=== PATIENT | male | born 1980 | race Two or more races ===

== ENCOUNTER 2019-08-21 08:38 | Emergency (ER) | payer SELFPAY ==
[~2019-08-21] VITALS: Ht 175.3 cm; Wt 72.6 kg
[2019-08-21] MEDS ORDERED: TETRACAINE HCL 0.5% OPHT DROP 2 ML BOTTLE ONE (08:50)
[2019-08-21] MEDS ORDERED: FLUORESCEIN SODIUM 1 MG STRIP ONE (08:50)
[2019-08-21] MEDS ORDERED: TETRACAINE HCL 0.5% OPHT DROP 2 ML BOTTLE OP ONE (09:00)
[2019-08-21] MEDS ORDERED: FLUORESCEIN SODIUM 1 MG STRIP OP ONE (09:00)
[2019-08-21] MEDS ORDERED: GENTAMICIN SULFATE OPHT DROP 5 ML BOTTLE ONE (09:05)
--- NOTE | 2019-08-21 09:08 | NUR ---
eye patch placed anastasia md order. pt to ct.
[2019-08-21] MEDS ORDERED: GENTAMICIN SULFATE OPHT OINT 3.5 GM TUBE LEFTEYE ONE (09:15)
--- NOTE | 2019-08-21 09:43 | NUR ---
Patient discharged to home in stable condition. Written and verbal after care instructions given. Patient verbalizes understanding of instructions. Stressed follow up or return to ER for worsening s/s. pt was instructed to follow up with [facility] [place].
== END 2019-08-21 09:50 | disposition home or self-care (01) ==
LOC: ER 08:38
DX: T26.12XA Burn of cornea and conjunctival sac, left eye, initial encounter (principal); T20.16XA Burn of first degree of forehead and cheek, initial encounter; T26.02XA Burn of left eyelid and periocular area, initial encounter; X19.XXXA Contact with other heat and hot substances, initial encounter; Y93.89 Activity, other specified; Y92.030 Kitchen in apartment as the place of occurrence of the external cause; S02.32XA Fracture of orbital floor, left side, initial encounter for closed fracture; W22.8XXA Striking against or struck by other objects, initial encounter
CPT/HCPCS: 70480; A4663

== ENCOUNTER 2020-08-08 08:43 | Inpatient (IN) | payer MEDICAID ==
[~2020-08-08] VITALS: Ht 175.3 cm; Wt 81.6 kg
--- NOTE | 2020-08-08 08:59 | NUR ---
[email or web address], medical screening exam in progress
[2020-08-08] MEDS ORDERED: CEFTRIAXONE 1 G in IV DEXTROSE 5% 50 ML IV ONE (09:15)
[2020-08-08] MEDS ORDERED: IV NORMAL SALINE 1000 ML BAG IV ONE (09:15)
[2020-08-08] MEDS ORDERED: VANCOMYCIN IV 1,000 MG in IV DEXTROSE 5% 250 ML IV ONE (09:15)
[2020-08-08] MEDS ORDERED: VANCOMYCIN IV 200 ML ONE (09:23)
[2020-08-08] MEDS ORDERED: CEFTRIAXONE 1 G VIAL ONE (09:23)
[2020-08-08 09:53] LABS: CREATININE 1.1 mg/dL (0.6-1.3); POTASSIUM 3.7 mmol/L (3.5-5.1)
[2020-08-08 09:54] LABS: BASOPHILS # (AUTO) 0.1 K/uL (0.0-8.0); BASOPHILS % (AUTO) 0.4 % (0.0-2.0); EOSINOPHILS # (AUTO) 0.2 K/uL (0.0-0.7); EOSINOPHILS % (AUTO) 0.9 % (0.0-7.0); HEMATOCRIT 41.5 % (36.7-47.1); HEMOGLOBIN 13.5 g/dL (12.5-16.3); LYMPHOCYTES # (AUTO) 3.4 K/uL (20.0-40.0); LYMPHOCYTES % (AUTO) 18.7 % (20.5-51.5); MEAN CORPUSCULAR HEMOGLOBIN 27.8 uug (23.8-33.4); MEAN CORPUSCULAR HGB CONC 33 g/dL (32.5-36.3); MEAN CORPUSCULAR VOLUME 85.3 fL (73.0-96.2); MONOCYTES # (AUTO) 1.1 K/uL (2.0-10.0); MONOCYTES % (AUTO) 5.8 % (0.0-11.0); NEUTROPHILS # (AUTO) 13.7 K/uL (1.8-8.9); NEUTROPHILS % (AUTO) 74.2 % (38.5-71.5); PLATELET COUNT (AUTO) 396 K/uL (152-348); RED BLOOD CELL COUNT(AUTO) 4.87 MIL/uL (4.06-5.63); WHITE BLOOD COUNT (AUTO) 18.4 K/uL (3.6-10.2)
[2020-08-08 10:05] LABS: BILIRUBIN,DIRECT 0.1 mg/dL (0.0-0.2); BILIRUBIN,TOTAL 0.2 mg/dL (0.2-1.0); TOTAL PROTEIN, SERUM 7.3 g/dL (6.4-8.2)
[2020-08-08] MEDS ORDERED: ONDANSETRON 4 MG/2 ML VIAL IV PRN (10:45)
[2020-08-08] MEDS ORDERED: MAGNESIUM HYDROXIDE 30 ML LIQUID UDC PO PRN (10:45)
[2020-08-08] MEDS ORDERED: ACETAMINOPHEN 325 MG TABLET PO PRN (10:45)
[2020-08-08] MEDS ORDERED: Z GUARD REMEDY PASTE 57 GM TUBE TOP PRN (10:45)
[2020-08-08] MEDS ORDERED: HYDROCODONE/APAP 5-325MG TABLET PO PRN (10:45)
--- NOTE | 2020-08-08 10:51 | NUR ---
Patient admitted to [facility] medical-surgical floor under care of JUAN[facility]. Belongings list completed. MRSA swab collected.
--- NOTE | 2020-08-08 11:30 | NUR ---
Patient admitted from ER. patient wound pictures taken and placed in chart. Patient able to ambulate to bathroom with mild pain during ambulation. IV fluids started. Call light in reach, bed in low position, side rails up x2. Patients wounds were debrided by Podiatry and wrapped with kerlix.
[2020-08-08 11:57] VITALS: BP 108/67
--- NOTE | 2020-08-08 12:04 | NUR ---
WOUND CARE CONSULT: PT PRESENTS WITH REDNESS AND SWELLING TO BILATERAL LOWER LEGS WITH AREAS OF BROWN/YELLOW TISSUE, PRESENT ON ADMISSION. RECOMMEND DPM CONSULT. DR TONY NOTIFIED OF CONSULT REQUEST. PT STATES IS AMBULATORY. IN AGREEMENT WITH PLAN OF CARE. Addendum: 08/08/20 at 1205 by ARTHUR ZARAGOZA RN Amended: Links added.
[2020-08-08] MEDS: IV NS 1000 ML 1,000 ML IV PRN (13:14)
[2020-08-08] MEDS: HYDROMORPHONE 1 MG/1 ML DISP.SYRIN IV PRN (14:54)
[2020-08-08 15:31] VITALS: BP 112/57
[2020-08-08 20:15] VITALS: BP 109/73
[2020-08-08] MEDS: VANCOMYCIN IV 1,250 MG in IV DEXTROSE 5% 250 ML IV SCH (21:08)
--- NOTE | 2020-08-08 21:18 | NUR ---
Received pt resting in bed. AAO x4. No acute distress noted. C/o moderate pain on bilateral legs, PRN [place] given. IV site on right hand #20, IVF running at 75cc. Due Vanco given as ordered. Safety measures maintained. Call light and personal items within reach. Will continue to monitor.
[2020-08-09] MEDS: HYDROMORPHONE 1 MG/1 ML DISP.SYRIN IV PRN ×3 (03:01→20:54)
[2020-08-09 04:45] VITALS: BP 112/67
[2020-08-09 06:37] LABS: BASOPHILS # (AUTO) 0.1 K/uL (0.0-8.0); BASOPHILS % (AUTO) 0.4 % (0.0-2.0); EOSINOPHILS # (AUTO) 0.1 K/uL (0.0-0.7); EOSINOPHILS % (AUTO) 0.5 % (0.0-7.0); HEMATOCRIT 42.3 % (36.7-47.1); HEMOGLOBIN 14.1 g/dL (12.5-16.3); LYMPHOCYTES # (AUTO) 2.6 K/uL (20.0-40.0); LYMPHOCYTES % (AUTO) 16.1 % (20.5-51.5); MEAN CORPUSCULAR HGB CONC 33 g/dL (32.5-36.3); MEAN CORPUSCULAR VOLUME 84.1 fL (73.0-96.2); MONOCYTES # (AUTO) 0.6 K/uL (2.0-10.0); NEUTROPHILS # (AUTO) 12.9 K/uL (1.8-8.9); PLATELET COUNT (AUTO) 426 K/uL (152-348); RED BLOOD CELL COUNT(AUTO) 5.03 MIL/uL (4.06-5.63); WHITE BLOOD COUNT (AUTO) 16.4 K/uL (3.6-10.2)
[2020-08-09 07:09] LABS: CREATININE 0.9 mg/dL (0.6-1.3); MAGNESIUM 2.2 mg/dL (1.8-2.4); PHOSPHOROUS 3.2 mg/dL (2.5-4.9); POTASSIUM 3.5 mmol/L (3.5-5.1)
[2020-08-09 08:00] VITALS: BP 116/79
[2020-08-09] MEDS: IV NS 1000 ML 1,000 ML IV PRN (09:57)
[2020-08-09] MEDS: VANCOMYCIN IV 1,250 MG in IV DEXTROSE 5% 250 ML IV SCH ×2 (09:57→21:23)
[2020-08-09] MEDS ORDERED: CEFTRIAXONE 1 G in IV DEXTROSE 5% 50 ML IV SCH (10:00)
--- NOTE | 2020-08-09 10:00 | NUR ---
Patient had an episode where he wanted his IV taken off and go down stairs to see his mother and son. Told a nurse passing by that he wanted to leave AMA and went down to [facility], security escorted patient back up stairs. Patient was given an AMA form and he asked for his prescription, and was explained that we do not give a prescription to patients that leave AMA and that his treatment is not complete. Patient said he will not leave and apologized for his behavior. New IV attempted to put in and unable. Midline ordered as he stated that he will stay.
[2020-08-09] MEDS ORDERED: LORAZEPAM 1 MG TABLET PO PRN (13:00)
[2020-08-09 17:03] VITALS: BP 112/76
[2020-08-09 20:00] VITALS: BP 108/68
--- NOTE | 2020-08-09 21:36 | NUR ---
Received pt resting in bed. AAO x4. No acute distress noted. C/o 8/10 on bilateral legs, PRN Dilaudid given. UNA midline patent and intact, running NS 75cc/hr. Pt also on Vanco, trough was less than 20. Safety measures maintained. Call light and personal items within reach. Will continue to monitor.
--- NOTE | 2020-08-10 03:00 | NUR ---
Pt had an episode of being anxious because a visitor was supposed to come past 9pm. Pt stated that he needs to sign a very important document and that his brother is flying out tomorrow and needs these documents signed. Noted pt to change his story that his brother is visiting him to a friend when asked by charge nurse. Pt agreed for 5 minute visit with presence from security. Pt 's visitor refused to show belongings and envelope that he has to give to the patient when asked by security and did not come up. Pt became agitated and requested to see visitor in the lobby, again with the presence of security and staff. Pt escorted to the lobby. Pt noted to sign some papers but it seems to be suspicious because papers and envelope appear to be old and worn out. The visitor also gave the pt a jacket, which we questioned as we stated that all belongings during and after admission has to be checked and recorded. Pt ended up giving back the jacket to the visitor. Charge nurse aware. Pt wanted to go AMA. Risks and benefits explained. This automobile service writer stated that IV midline will be taken out and no prescription will be given if he were to go AMA. Pt changed his mind and stated that he will wait for the doctor in the morning. Offered Ativan PO for his anxiety, but pt refused PO med and requesting IV Ativan. Education provided that he does not need the IV as PO will work for him at this time. Pt refused and went to sleep. Monitor closely.
[2020-08-10] MEDS: IV NS 1000 ML 1,000 ML IV PRN (03:34)
[2020-08-10 04:55] VITALS: BP 129/84
[2020-08-10 06:29] LABS: BASOPHILS # (AUTO) 0.2 K/uL (0.0-8.0); BASOPHILS % (AUTO) 1.2 % (0.0-2.0); EOSINOPHILS # (AUTO) 0.1 K/uL (0.0-0.7); EOSINOPHILS % (AUTO) 0.7 % (0.0-7.0); HEMATOCRIT 38.1 % (36.7-47.1); HEMOGLOBIN 12.8 g/dL (12.5-16.3); LYMPHOCYTES # (AUTO) 2.7 K/uL (20.0-40.0); MEAN CORPUSCULAR HEMOGLOBIN 28.4 uug (23.8-33.4); MEAN CORPUSCULAR HGB CONC 34 g/dL (32.5-36.3); MEAN CORPUSCULAR VOLUME 84.5 fL (73.0-96.2); MONOCYTES # (AUTO) 0.9 K/uL (2.0-10.0); MONOCYTES % (AUTO) 5.5 % (0.0-11.0); NEUTROPHILS # (AUTO) 12.2 K/uL (1.8-8.9); NEUTROPHILS % (AUTO) 75.6 % (38.5-71.5); PLATELET COUNT (AUTO) 329 K/uL (152-348); RED BLOOD CELL COUNT(AUTO) 4.51 MIL/uL (4.06-5.63); WHITE BLOOD COUNT (AUTO) 16.1 K/uL (3.6-10.2)
[2020-08-10 06:48] LABS: CREATININE 0.9 mg/dL (0.6-1.3); POTASSIUM 3.3 mmol/L (3.5-5.1)
[2020-08-10] MEDS ORDERED: VANCOMYCIN IV 1,000 MG in IV DEXTROSE 5% 250 ML IV SCH (08:00)
--- NOTE | 2020-08-10 09:08 | NUR ---
alert, oriented, and insists to leave at 0900 " for family issues". willing to have Vanco 1gm ivpb administered. Once it is completed , patient left. UNA midline out. left the floor just now at 0908
[2020-08-10 09:47] VITALS: BP 110/68
== END 2020-08-10 09:15 | disposition left against medical advice (07) | DRG 383 ==
LOC: ER 08:43 → MEDSURG3 11:05
PROVIDERS: ADMIT Nurse Practitioner Acute Care; ATTEND Nurse Practitioner Acute Care
PROC: 0JBP0ZZ Excision of Left Lower Leg Subcutaneous Tissue and Fascia, Open Approach (ICD-10-PCS; principal; 2020-08-08)
PROC: 0JBN0ZZ Excision of Right Lower Leg Subcutaneous Tissue and Fascia, Open Approach (ICD-10-PCS; principal; 2020-08-08)
PROC: 05H533Z Insertion of Infusion Device into Right Subclavian Vein, Percutaneous Approach (ICD-10-PCS; 2020-08-09)
PROC: B546ZZA Ultrasonography of Right Subclavian Vein, Guidance (ICD-10-PCS; 2020-08-09)
DX: L03.115 Cellulitis of right lower limb (principal); S81.801A Unspecified open wound, right lower leg, initial encounter; L03.116 Cellulitis of left lower limb; B95.0 Streptococcus, group A, as the cause of diseases classified elsewhere; F17.210 Nicotine dependence, cigarettes, uncomplicated; F32.9 Major depressive disorder, single episode, unspecified; Z91.19 Patient's noncompliance with other medical treatment and regimen; Y93.9 Activity, unspecified; S81.802A Unspecified open wound, left lower leg, initial encounter; X58.XXXA Exposure to other specified factors, initial encounter; Y92.009 Unspecified place in unspecified non-institutional (private) residence as the place of occurrence of the external cause; M79.662 Pain in left lower leg; M79.661 Pain in right lower leg; F43.29 Adjustment disorder with other symptoms; Z20.822 Contact with and (suspected) exposure to COVID-19
CPT/HCPCS: 36415; 70030-TC; 71045; 73590; 83605; 83735; 84100; 85025; 85730; 87040; 87070; 93005; A4217; A4663; G0378; J0696; J1170; J3370; J7030; J7060